=== PATIENT | female | born 1935 | race Caucasian/White ===

== ENCOUNTER 2021-04-24 12:02 | Outpatient (CLI) | payer MEDICARE | END 2021-04-24 12:03 | disposition home or self-care (01) | LOC: CSHULT 12:02 | PROVIDERS: ATTEND Urology | DX: N20.0 Calculus of kidney (principal) | CPT/HCPCS: 76770 ==

== ENCOUNTER 2021-09-21 11:46 | Outpatient (CLI) | payer MEDICARE | END 2021-09-21 11:47 | disposition home or self-care (01) | LOC: CSHRAD 11:46 | PROVIDERS: ATTEND Urology | DX: N20.0 Calculus of kidney (principal) | CPT/HCPCS: 74018 ==